=== PATIENT | female | born 1930 | race Caucasian/White ===

== ENCOUNTER 2017-03-07 18:34 | Inpatient (IN) | payer OTHER ==
[~2017-03-07] VITALS: Ht 157.5 cm; Wt 64.1 kg
[2017-03-07 20:05] LABS: CALCIUM 8.6 mg/dL (8.5-10.1); CHLORIDE SERUM 103 mmol/L (98-107); CREATININE SERUM 1.1 mg/dL (0.6-1.0); GLUCOSE SERUM 105 mg/dL (74-106); POTASSIUM SERUM 4.1 mmol/L (3.5-5.1); SODIUM SERUM 139 mmol/L (136-145)
[2017-03-07 20:18] LABS: ALBUMIN 3.6 g/dL (3.4-5.0); ALKALINE PHOSPHATASE 115 U/L (46-116); ALT/SGPT 22 U/L (14-59); AST/SGOT 32 U/L (15-37); CHOLESTEROL 188 mg/dL (<200); T4(THYROXINE) 10.2 ug/dL (4.7-13.3); TOTAL PROTEIN, SERUM 7.2 g/dL (6.4-8.2)
[2017-03-07 20:29] LABS: BASOPHIL % 0.1 % (0-2); PLATELET COUNT 269 x10^3mcL (130-400)
[2017-03-07 20:30] LABS: RED CELL DISTRIBUTION WIDTH 15.4 % (11.5-14.5)
[2017-03-07 22:31] LABS: microscopic required? YES; urine erythrocyte 2+ (NEGATIVE)
[2017-03-07 23:09] LABS: CHOLESTEROL/HDL RATIO 3.7; MAGNESIUM 1.7 mg/dL (1.8-2.4); PHOSPHOROUS 2.7 mg/dL (2.5-4.9)
[2017-03-07 23:14] VITALS: BP 117/60
[2017-03-08 05:34] VITALS: BP 124/52
[2017-03-08 07:30] VITALS: BP 132/62
[2017-03-08 09:51] VITALS: BP 113/38
[2017-03-08] MEDS ORDERED: LIPI10 PO (10:35)
[2017-03-08] MEDS ORDERED: LEVOTHYROXINE0.05 M2 PO (10:36)
[2017-03-08 11:14] VITALS: Ht 157.5 cm; Wt 64.1 kg
[2017-03-08 13:20] VITALS: BP 110/47
[2017-03-08 17:20] VITALS: BP 147/56
[2017-03-08 21:36] VITALS: BP 127/51
[2017-03-09 05:13] VITALS: BP 143/49
[2017-03-09 07:16] VITALS: BP 129/54
[2017-03-09 07:24] LABS: PLATELET COUNT 202 x10^3mcL (130-400)
[2017-03-09 07:28] LABS: RED CELL DISTRIBUTION WIDTH 15.5 % (11.5-14.5)
[2017-03-09 07:37] LABS: CARBON DIOXIDE 21.9 mmol/L (21-32); CHLORIDE SERUM 107 mmol/L (98-107); GLUCOSE SERUM 95 mg/dL (74-106); MAGNESIUM 1.9 mg/dL (1.8-2.4); POTASSIUM SERUM 3.4 mmol/L (3.5-5.1); SODIUM SERUM 135 mmol/L (136-145)
[2017-03-09 09:20] VITALS: BP 124/44
[2017-03-09 09:24] LABS: BAND NEUTROPHIL 4 % (0-10); BASOPHIL 0 % (0-2); MONOCYTE 10 % (0-7); SEGMENTED NEUTROPHILS 71 % (37-75)
[2017-03-09 09:25] LABS: PLATELET MORPHOLOGY PLATELETS NORMAL
[2017-03-09 13:50] VITALS: BP 112/62
[2017-03-09 17:20] VITALS: BP 172/58
[2017-03-09 21:14] VITALS: BP 139/43
[2017-03-10 05:26] VITALS: BP 112/92
[2017-03-10 07:47] LABS: CALCIUM 8.3 mg/dL (8.5-10.1); CHLORIDE SERUM 106 mmol/L (98-107); CREATININE SERUM 0.9 mg/dL (0.6-1.0); GLUCOSE SERUM 112 mg/dL (74-106); POTASSIUM SERUM 3.8 mmol/L (3.5-5.1); SODIUM SERUM 138 mmol/L (136-145)
[2017-03-10 08:00] VITALS: BP 132/63
[2017-03-10 12:28] LABS: PLATELET COUNT 195 x10^3mcL (130-400); RED CELL DISTRIBUTION WIDTH 15.7 % (11.5-14.5)
[2017-03-10 12:47] LABS: ATYPICAL LYMPH 1 %; BAND NEUTROPHIL 6 % (0-10); BASOPHIL 0 % (0-2); MONOCYTE 9 % (0-7); PLATELET MORPHOLOGY PLATELETS NORMAL; SEGMENTED NEUTROPHILS 69 % (37-75); rbc morphology (normal/abnorm) ABNORMAL (NORMAL)
[2017-03-10 14:32] VITALS: BP 123/53
[2017-03-10 21:39] VITALS: BP 132/57
[2017-03-11 06:18] LABS: BASOPHIL % 0.5 % (0-2); PLATELET COUNT 233 x10^3mcL (130-400)
[2017-03-11 06:21] LABS: CALCIUM 8.5 mg/dL (8.5-10.1); CHLORIDE SERUM 109 mmol/L (98-107); GLUCOSE SERUM 91 mg/dL (74-106); SODIUM SERUM 144 mmol/L (136-145)
[2017-03-11 06:24] VITALS: BP 161/60
[2017-03-11 06:31] LABS: RED CELL DISTRIBUTION WIDTH 15.5 % (11.5-14.5)
[2017-03-11 06:45] VITALS: BP 151/48
[2017-03-11 09:55] VITALS: BP 148/48
[2017-03-11 17:28] VITALS: BP 148/48
[2017-03-11 17:33] VITALS: BP 140/64
[2017-03-11] MEDS ORDERED: INVANZ1 GM IV (17:41)
== END 2017-03-11 19:50 | DRG 689 ==
LOC: ED 18:34 → MU 22:02 → DU 22:02 → MU 03-09 16:32
PROVIDERS: Emergency Medicine; Student in an Organized Health Care Education/Training Program; ADMIT Family Medicine
DX: N39.0 Urinary tract infection, site not specified (principal); G93.41 Metabolic encephalopathy; D68.69 Other thrombophilia; R73.03 Prediabetes; E83.42 Hypomagnesemia; E78.5 Hyperlipidemia, unspecified; E03.9 Hypothyroidism, unspecified; Z53.29 Procedure and treatment not carried out because of patient's decision for other reasons; I11.9 Hypertensive heart disease without heart failure; D64.9 Anemia, unspecified; E83.51 Hypocalcemia; E87.6 Hypokalemia; R26.81 Unsteadiness on feet; Z16.12 Extended spectrum beta lactamase (ESBL) resistance; B96.20 Unspecified Escherichia coli [E. coli] as the cause of diseases classified elsewhere; Z68.25 Body mass index [BMI] 25.0-25.9, adult; Z90.49 Acquired absence of other specified parts of digestive tract
CPT/HCPCS: 82962; 83880; 97110-GP; 97116-GP; 97530-GP; C1751; J0696; J1642; J2060; J2185 ×2; J3490; J7030; Q0092

== ENCOUNTER 2019-04-16 13:30 | Inpatient (IN) | payer OTHER ==
[~2019-04-16] VITALS: Ht 157.5 cm; Wt 61.7 kg
[~2019-04-16 13:30] MED LIST: INVANZ1 GM IV; LEVOTHYROXINE0.05 M2 PO; LIPI10 PO
[2019-04-16 13:35] VITALS: Ht 157.5 cm; Wt 61.7 kg
--- NOTE | 2019-04-16 13:47 | NUR ---
PER MEDIC PT WAS AT HER HOME WHEN HER DAUGHTER CALLED 911 DUE TO HER MOTHER 'SHAKING' AND NOT ACTING NORMAL. MEDIC STS UPON ARRIVAL PT WAS SHAKING AND ACTING CONFUSED. PER DAUGHTER PT HAS BEEN HAVING NAUSEA AND VOMITING FOR 3 DAYS. PER DAUGHT PT HAS NOT VOMITED TODAY. PER PT SHE STS SHE IS HAVING DAVID LOWER QUAD PAIN. PT DENIES ANY DYSURIA. POS BOWEL SOUNDS IN ALL 4 QUAD. PT IS ABLE TO ANSWER SIMPLE QUESTION BUT IS UNABLE TO STAY STILL. PER MASOOD PT SEEMS CONFUSED. VSS. RESP E/U. WILL CONTINUE TO MONITOR.
--- NOTE | 2019-04-16 15:21 | NUR ---
DR. BARFIELD AT BEDSIDE MORE MSE.
--- NOTE | 2019-04-16 15:40 | NUR ---
XRAY/LAB AT BEDSIDE
--- NOTE | 2019-04-16 15:45 | NUR ---
PT TAKEN TO CT.
[2019-04-16 15:49] LABS: UA SPECIFIC GRAVITY 1.015 (1.005-1.035); microscopic required? YES; urine erythrocyte 1+ (NEGATIVE)
[2019-04-16 15:51] LABS: BASOPHIL % 0.3 % (0-2); PLATELET COUNT 213 x10^3mcL (130-400)
[2019-04-16 16:00] LABS: AMPHETAMINE QUAL UR NONE DETECTED (See below)
[2019-04-16 16:02] LABS: CALCIUM 8.4 mg/dL (8.5-10.1); CARBON DIOXIDE 24.8 mmol/L (21-32); CHLORIDE SERUM 102 mmol/L (98-107); CREATININE SERUM 1.1 mg/dL (0.6-1.0); GLUCOSE SERUM 105 mg/dL (74-106); POTASSIUM SERUM 3.6 mmol/L (3.5-5.1); SODIUM SERUM 138 mmol/L (136-145)
[2019-04-16 16:13] LABS: ALKALINE PHOSPHATASE 201 U/L (46-116); ALT/SGPT 87 U/L (14-59); AST/SGOT 91 U/L (15-37); BILIRUBIN TOTAL 0.8 mg/dL (0.20-1.00); LIPASE 98 IU/L (73-393); MAGNESIUM 1.6 mg/dL (1.8-2.4); T4(THYROXINE) 11.1 ug/dL (4.7-13.3); TOTAL PROTEIN, SERUM 7.1 g/dL (6.4-8.2)
--- NOTE | 2019-04-16 16:16 | NUR ---
RETURNED FROM CT.
--- NOTE | 2019-04-16 16:16 | NUR ---
MEDICATED PER EMAR
[2019-04-16 16:18] LABS: ALBUMIN 3.2 g/dL (3.4-5.0); CHOLESTEROL 122 mg/dL (<200); HDL CHOLESTEROL 34 mg/dL (40-60)
--- NOTE | 2019-04-16 17:09 | NUR ---
ATTEMPTED TO OBTAIN ABG BUT PT WAS LETHARGIC AND UNCOOPERATIVE AND KEPT RETRACTING ARM WHEN NEEDLE WAS INSERTED. ATTEMPTED TWICE WITH NO SUCCESS. AT RISK FOR NEEDLE STICK SO NO MORE ATTEMPTS WERE MADE. DR BARFIELD AWARE AND SAID IT IS OKAY, PT WILL BE ADMITTED FOR NOW. ORDER CANCELLED.
--- NOTE | 2019-04-16 18:36 | NUR ---
PT INCONTINENT OF URINE. INCONTINENT CARE GIVEN BY THIS RN AND ASSISTED BY ALEX BRENNAN. PRIMARY CARE RN, GABRIELA, MADE AWARE.
[2019-04-16 19:35] VITALS: BP 144/62
--- NOTE | 2019-04-16 19:52 | NUR ---
RECEIVED PT FROM ER, PT ADMIT FOR PNA, PT IS A/O X2, CONFUSED, FOLLOW SOME COMMAND, LUNG SOUND DIM DAVID BASE, NO S/S OF SOB, PO2 97% IN ROOM AIR, DENY ANY CHEST PAIN OR DISCOMFORT, BOWEL SOUND PRESENT ALL 4 QUADRANTS, NO DISTENTION, NO TENDER. PEDAL PULSE PRESENT BOTH FEET, NO EDEMA, BED ALARM IS IN PLACE, IV AT LEFT AC, NO LEAKIGN, NO INFILTRATION. ALL ADLS ASSIST, ALL NEED MET, CALL LIGHT IN REACH, WILL CONTINUE TO MONITOR.
--- NOTE | 2019-04-16 20:03 | NUR ---
PUT PT ON TELE 1, NSR, NO S/S OF CHEST PAIN AT THIS MOMENT, ENDORSE PT TO PRIMARY NURSE, WILL CONTINUE TO MONITOR.
[2019-04-16 20:48] VITALS: BP 123/54
--- NOTE | 2019-04-16 21:30 | NUR ---
PT PULLING OF TELE MONITOR, PATIENT REORIENTED AND TELE REPLACED
--- NOTE | 2019-04-16 22:30 | NUR ---
PT IV WENT BAD, RESTARTED NEW IV TO THE RFA 22 GAUGE
--- NOTE | 2019-04-16 23:00 | NUR ---
PT RETING IN BED AND CONFUSED AND ATTEMPTING TO GET OUT OF BED, REORIENTED PT AND PT STARTED TO CALM DOWN, SAFETY PRECAUTIONS IN PLACE, BEDRAILS UP X 3 BED IN THE LOWEST POSITION, BED ALARM ON, WILL COTNTINUE TO MONITOR
--- NOTE | 2019-04-17 01:36 | NUR ---
PT IS AGITATED AND RESTLESS, CONTACTED DR JOHAN DR ORDERED ATIVAN 1 MG Q6HR PRN FOR AGITATION.
[2019-04-17 02:00] VITALS: BP 135/54
--- NOTE | 2019-04-17 03:20 | NUR ---
PT RESTING COMFORTABLY IN BED WITH NO ACUTE DISTRESS AT THIS TIME, RESPIRATIONS EVEN AND UNLABORED, SAFETY PRECAUTIONS IN PLACE, WILL CONTINUE TO MONITOR
--- NOTE | 2019-04-17 05:14 | NUR ---
PT WAS RESTLESS AND AGITATED THROUGH BEGINING OF SHIFT AND GRABBING AT IV AND TELE MONITOR, DR PRADO WAS NOTIFIED AND HE ORDERED PRN ATIVAN THAT WAS ADMINISTERED, PT CALMED DOWN AFTER ADMINISTRATION, PT DENIES ANY PAIN OR SOB, ALL NEEDS ATTENDED TO, SAFETY PRECAUTIONS IN PLACE, WILL CONTINUE TO MONITOR AND ENDORSE CARE
[2019-04-17 05:55] VITALS: BP 129/49
[2019-04-17 06:49] LABS: CALCIUM 7.9 mg/dL (8.5-10.1); CARBON DIOXIDE 25.4 mmol/L (21-32); CHLORIDE SERUM 103 mmol/L (98-107); CREATININE SERUM 0.9 mg/dL (0.6-1.0); GLUCOSE SERUM 95 mg/dL (74-106); POTASSIUM SERUM 3.4 mmol/L (3.5-5.1); SODIUM SERUM 138 mmol/L (136-145)
[2019-04-17 07:05] LABS: BASOPHIL % 0.2 % (0-2); PLATELET COUNT 191 x10^3mcL (130-400)
--- NOTE | 2019-04-17 07:15 | NUR ---
RECEIVED PT. IN BED AWAKE, ALERT. PT. IS CONFUSED (ONLY ORIENTED TO PERSON). NO SOB, NO N/V NOTED. PT. DENIES ANY PAIN AT THIS TIME. 1/2NS RUNNING AT 75 CC/HR VIA IV SITE AT L AC. BED IN LOW POS., CALL LIGHT WITHIN REACH. SIDE RAILS UP X3.
[2019-04-17 07:19] LABS: RED CELL DISTRIBUTION WIDTH 14.8 % (11.5-14.5)
[2019-04-17 09:02] VITALS: BP 130/50
--- NOTE | 2019-04-17 09:24 | NUR ---
PT. BECOMES VERY RESTLESS AND AGITATED. PT. CONSTANTLY ATTEMPTING TO GET OUT OF BED AND REMOVE TELE. MONITOR, IV TUBING, AND GOWN. ATIVAN 1MG IV GIVEN.
[2019-04-17] MEDS ORDERED: LEVOFLOXACIN500 M1 PO (10:10)
[2019-04-17 13:25] VITALS: BP 114/51
--- NOTE | 2019-04-17 17:00 | NUR ---
DR. BASHIR CALLED BACK. ABD. ULTRSOUND RESULTS AND CK LEVEL REPORTED TO DR. BASHIR. DR. BASHIR ALSO WAS MADE AWARE THAT PT.'S DAUGHTER EXPRESSED CONCERN THAT SHE FEELS PT. IS NOT STABLE ENOUGH TO BE DISCHARGED TODAY. DAUGHTER STATED EARLIER TODAY THAT SHE CAN'T TAKE THE PT. HOME WHEN PT. IS STILL VERY CONFUSED AND VERY WEAK. ORDER TO HOLD DISCHARGE TODAY RECEIVED FROM DR. BASHIR.
--- NOTE | 2019-04-17 17:11 | NUR ---
PT. IS GETTING RESTLESS AND AGITATED IN BED. PT. IS ALSO CONSTANTLY ATTEMPTING TO PULL ON IV LINE, TELE. WIRES, AND GOWN. ATIVAN 1MG IV GIVEN.
[2019-04-17 17:29] VITALS: BP 147/74
--- NOTE | 2019-04-17 19:30 | NUR ---
RECEIVED PT IN BED ASLEEP BUT AROUSABLE. FAMILY MEMBERS AT BEDSIDE. PT WAS MEDICATED W/ ATIVAN BY AM NURSE FOR AGITATION. PT NOW APPEARS CALM. NO SOB NOTED. ON O2 AT 2L VIA N/C. SHE HAS NO C/O PAIN AT THIS TIME. W/ IVF 1/2 NS AT 75 CC/HR RTFA. CALL LIGHT W/IN REACH.
--- NOTE | 2019-04-17 23:42 | NUR ---
PT CONFUSED AND REMOVING TELE, TRYING TO PULL IV AND TRYING TO GET OOB REPEATEDLY. PT REORIENTED NEEDED BUT INEFFECTIVE. PTGIVEN ATIVAN 1 MG IV TO HELP HER CALM DOWN. SITTER AT BEDSIDE.
[2019-04-17 23:55] VITALS: BP 150/54
--- NOTE | 2019-04-18 00:26 | NUR ---
PT SLEEPING SOUNDLY AT THIS TIME. NO S/S OF DISTRESS. SITTER AT BEDSIDE.
--- NOTE | 2019-04-18 05:16 | NUR ---
PT REMAINS ASLEEP. SHE WAS MEDICATED FOR AGITATION X1. NO EPISODE OF RESP. DISTRESS. SHE HAD NO C/O PAIN. IVF 1/2 NS INFUSING WELL AT 75 CC/HR VIA RTFA. ALL NEEDS ATTENDED TO. SITTER AT BEDSIDE.
[2019-04-18 06:52] VITALS: BP 126/75
--- NOTE | 2019-04-18 07:15 | NUR ---
RECEIVED PT. IN BED AWAKE BUT CONFUSED. PT. IS ONLY ORIENTED TO PERSON. NOTICED PT. STILL ATTEMPTING TO PULL ON IV LINE AND TELE. MONITOR. NO SOB, NO N/V NOTED. PT. DENIES ANY PAIN AT THIS TIME. 1/2NS RUNNING AT 75 CC/HR VIA IV SITE AT R FA. BED IN LOW POS., CALL LIGHT WITHIN REACH. SIDE RAILS UP X3. CONTACT CENTRE SUPERVISOR AT BEDSIDE TO MAINTAIN SAFETY.
--- NOTE | 2019-04-18 07:25 | NUR ---
PT. IS BEING SEEN BY DR. BASHIR AT THIS TIME.
[2019-04-18 08:18] LABS: BASOPHIL % 0.2 % (0-2); PLATELET COUNT 215 x10^3mcL (130-400)
[2019-04-18 08:19] LABS: RED CELL DISTRIBUTION WIDTH 15.4 % (11.5-14.5)
[2019-04-18 08:31] LABS: ALKALINE PHOSPHATASE 168 U/L (46-116); ALT/SGPT 70 U/L (14-59); AST/SGOT 51 U/L (15-37); BILIRUBIN TOTAL 0.39 mg/dL (0.20-1.00); CALCIUM 8.2 mg/dL (8.5-10.1); CARBON DIOXIDE 24.1 mmol/L (21-32); CHLORIDE SERUM 104 mmol/L (98-107); CREATININE SERUM 0.8 mg/dL (0.6-1.0); GLUCOSE SERUM 128 mg/dL (74-106); POTASSIUM SERUM 3.2 mmol/L (3.5-5.1); SODIUM SERUM 137 mmol/L (136-145); TOTAL PROTEIN, SERUM 6.2 g/dL (6.4-8.2)
[2019-04-18 08:33] LABS: ALBUMIN 2.7 g/dL (3.4-5.0)
[2019-04-18 08:55] VITALS: BP 136/92
[2019-04-18 13:17] VITALS: BP 146/65
--- NOTE | 2019-04-18 15:35 | NUR ---
CALLED AND REPORTED K LEVEL (3.2) TO DR. BASHIR. ORDER TO ADMINISTER PO KCL 40 MEQ X1 RECEIVED.
[2019-04-18 17:08] VITALS: BP 155/72
--- NOTE | 2019-04-18 18:11 | NUR ---
REMAINS IN STABLE CONDITION AT THIS TIME. WILL CONTINUE TO MONITOR.
--- NOTE | 2019-04-18 19:20 | NUR ---
RECEIVED PT IN BED AWAKE, ALERT BUT CONFUSED. PER REPORT PT REMAINS CONFUSED BUT CALMER. NO SOB NOTED ON ROOM AIR. SHE HAS NO C/O PAIN AT THIS TIME. BOWEL SOUNDS ACTIVE. W/ IVF 1/2 NS AT 75 CC/HR VIA RTFA. CALL LIGHT W/IN REACH. BED ALARM ACTIVATED. SITTER AT BEDSIDE.
[2019-04-18 20:32] VITALS: BP 153/63
--- NOTE | 2019-04-18 22:41 | NUR ---
PT AWAKE, RESTING IN BED. SHE APPEARS CALM AT THIS TIME. NO C/O PAIN OR DISCOMFORT.
--- NOTE | 2019-04-18 23:30 | NUR ---
PT AWAKE, STILL CONFUSED BUT CALM. NO C/O DISCOMFORT OR PAIN.
--- NOTE | 2019-04-19 02:00 | NUR ---
PT REAMINS CALM AND APPEARS TO BE SLEEPING SOUNDLY.
[2019-04-19 04:59] VITALS: BP 155/55
--- NOTE | 2019-04-19 05:17 | NUR ---
PT SLEPT AT LONG INTERVALS. SHE IS LESS CONFUSED AND REMAINED CALM DURING THE NIGHT. NO EPISODE OF SOB ON ROOM AIR. SHE HAD NO C/O PAIN. PT IS INCONTINENT OF URINE. NO BM NOTED THIS SHIFT. ALL NEEDS ATTENDED TO.
[2019-04-19 06:35] LABS: BASOPHIL % 0.7 % (0-2); PLATELET COUNT 240 x10^3mcL (130-400)
[2019-04-19 06:46] LABS: ALKALINE PHOSPHATASE 145 U/L (46-116); ALT/SGPT 57 U/L (14-59); AST/SGOT 35 U/L (15-37); BILIRUBIN TOTAL 0.3 mg/dL (0.20-1.00); CALCIUM 8.1 mg/dL (8.5-10.1); CARBON DIOXIDE 24.6 mmol/L (21-32); CHLORIDE SERUM 108 mmol/L (98-107); CREATININE SERUM 0.8 mg/dL (0.6-1.0); GLUCOSE SERUM 86 mg/dL (74-106); POTASSIUM SERUM 3.7 mmol/L (3.5-5.1); SODIUM SERUM 141 mmol/L (136-145)
[2019-04-19 06:49] LABS: RED CELL DISTRIBUTION WIDTH 14.9 % (11.5-14.5)
[2019-04-19 06:52] LABS: ALBUMIN 2.5 g/dL (3.4-5.0); TOTAL PROTEIN, SERUM 5.8 g/dL (6.4-8.2)
--- NOTE | 2019-04-19 07:30 | NUR ---
RECEIVED PT FROM DEWATERER OPERATOR RN. CONFUSED, ORIENTED TO SELF. TELE#1. DENIES CHEST PAIN/PRESSURE. RESPIRATIONS EQUAL AND UNLABORED ON RA. DENIES SOB. PT DENIES ANY PAIN AT THIS TIME. NOTED SCATTERED ECCHYMOSIS TO BLE AND RFA, IRIS. IV TO RFA PATENT AND INFUSING. NO REDNESS OR SWELLING NOTED. WILL CONTINUE TO MONITOR. CALL LIGHT IN REACH. BED IN LOWEST POSITION.
[2019-04-19 08:30] VITALS: BP 136/74
--- NOTE | 2019-04-19 10:12 | NUR ---
SPOKE WITH DENIS PHYSICAL THERAPIST RECOMMENDS PT CONTINUE HOME HEALTH WITH PT. CALLED [facility]RYST[facility] CORREIA, PER DR. BASHIR ARRANGE FOR HOME HEALTH WITH PHYSICAL THERAPY.
[2019-04-19 10:17] VITALS: BP 136/74
[2019-04-19 12:45] VITALS: BP 162/69
[2019-04-19 14:59] VITALS: BP 128/71
--- NOTE | 2019-04-19 15:40 | NUR ---
PT SITTING UP IN BED. NO ACUTE RESP
--- NOTE | 2019-04-19 15:54 | NUR ---
PT SITTING UP IN BED. PT GIVEN DISCHARGE INSTRUCTIONS WITH DAUGHTER JAGDISH AT BEDSIDE. PT ENCOURAGED TO CONTINUE ACTIVITY TOLERATED. PT GIVEN PRESCRIPTION FOR LEVAQUIN AND INSTRUCTED TO TAKE MEDICATION DAILY FOR 6 DAYS. PT AND DAUGHTER VERBALIZED UNDERSTANDING. PT ENCOURAGED TO RETURN TO ER OR PCP IF ANY WORSENING SYMPTOMS OF FEVER, DIFFICULTY BREATHING, CHILLS, ETC. PT VERBALIZED UNDERSTANDING. PT ENCOURAGED TO FOLLOW UP WITH PCP WITHIN 1 WEEK OF DISCHARGE. PT VERBALIZED UNDERSTANDING. ALL QUESTIONS AND CONCERNS ADDRESSED. DAUGHTER SIGNED FOR PATIENT. NO PROBLEMS ENCOUNTERED. DAUGHTER STATES "HER LEAF TINNER WILL BE HERE BETWEEN 4:30-5:00PM. IT'S BETTER IF WE WAIT FOR HER BECAUSE SHE CAN HELP ME WITH MY MOTHER" WILL CONTINUE TO MONITOR. CALL LIGHT IN REACH. BED IN LOWEST POSITION.
--- NOTE | 2019-04-19 16:56 | NUR ---
PT DAUGHTER JAGDISH REQUESTING FOR A FRONT WHEEL WALKER FOR PT. SPOKE WITH [employer] BROOKE, PER BROOKE WILL WORK ON GETTING PT A FRONT WHEEL WALKER. SPOKE WITH DR. KRYSTEN PERRY TO ORDER FRONT WHEEL WALKER. ORDER CONFIRMED TORRaisa.
== END 2019-04-19 17:50 | disposition home health service (06) | DRG 194 ==
LOC: ED 13:30 → DU 18:06
PROVIDERS: Emergency Medicine; ADMIT Internal Medicine
DX: J18.9 Pneumonia, unspecified organism (principal); M62.82 Rhabdomyolysis; R50.9 Fever, unspecified; R41.0 Disorientation, unspecified; F41.9 Anxiety disorder, unspecified; R74.0 Nonspecific elevation of levels of transaminase and lactic acid dehydrogenase [LDH]; I45.10 Unspecified right bundle-branch block; E03.9 Hypothyroidism, unspecified; E78.5 Hyperlipidemia, unspecified; Z68.25 Body mass index [BMI] 25.0-25.9, adult; Z87.440 Personal history of urinary (tract) infections
CPT/HCPCS: 82962; 97116-GP; 97530-GP; G0378; G0480; J0456; J0696; J1630; J1650; J1956; J2060; J3475; J7030; J7060; Q0092

== ENCOUNTER 2019-04-22 18:16 | Emergency (ER) | payer OTHER ==
[~2019-04-22] VITALS: Ht 157.5 cm; Wt 74.8 kg
[~2019-04-22 18:16] MED LIST changes: +LEVOFLOXACIN500 M1 PO
[2019-04-22 18:26] VITALS: Ht 157.5 cm; Wt 74.8 kg
[2019-04-22 20:10] LABS: BASOPHIL % 0.6 % (0-2); PLATELET COUNT 346 x10^3mcL (130-400); RED CELL DISTRIBUTION WIDTH 15.2 % (11.5-14.5)
[2019-04-22 20:33] LABS: CALCIUM 8.6 mg/dL (8.5-10.1); CARBON DIOXIDE 21.2 mmol/L (21-32); CHLORIDE SERUM 104 mmol/L (98-107); CREATININE SERUM 1.5 mg/dL (0.6-1.0); GLUCOSE SERUM 103 mg/dL (74-106); POTASSIUM SERUM 3.9 mmol/L (3.5-5.1); SODIUM SERUM 138 mmol/L (136-145)
[2019-04-22 20:38] LABS: ALT/SGPT 83 U/L (14-59); AST/SGOT 57 U/L (15-37); BILIRUBIN TOTAL 0.5 mg/dL (0.20-1.00)
[2019-04-22 20:39] LABS: ALBUMIN 3.3 g/dL (3.4-5.0)
[2019-04-22 20:54] LABS: ALKALINE PHOSPHATASE 155 U/L (46-116)
[2019-04-22 21:07] VITALS: BP 134/64
== END 2019-04-22 21:07 | disposition home or self-care (01) ==
LOC: ED 18:16
PROVIDERS: Emergency Medicine
DX: F03.91 Unspecified dementia, unspecified severity, with behavioral disturbance (principal); E78.00 Pure hypercholesterolemia, unspecified
CPT/HCPCS: 36415; Q0092

== ENCOUNTER 2019-06-27 16:34 | Emergency (ER) | payer OTHER ==
[~2019-06-27] VITALS: Ht 154.9 cm; Wt 54.4 kg
[2019-06-27 16:40] VITALS: Ht 154.9 cm; Wt 54.4 kg
[2019-06-27 18:03] LABS: BASOPHIL % 0.6 % (0-2); PLATELET COUNT 269 x10^3mcL (130-400)
[2019-06-27 18:05] LABS: RED CELL DISTRIBUTION WIDTH 14.8 % (11.5-14.5)
[2019-06-27 18:12] LABS: CALCIUM 8.2 mg/dL (8.5-10.1); CARBON DIOXIDE 26.9 mmol/L (21-32); CHLORIDE SERUM 108 mmol/L (98-107); CREATININE SERUM 1.1 mg/dL (0.6-1.0); GLUCOSE SERUM 101 mg/dL (74-106); POTASSIUM SERUM 4.2 mmol/L (3.5-5.1); SODIUM SERUM 143 mmol/L (136-145)
[2019-06-27 18:16] LABS: ALBUMIN 3.1 g/dL (3.4-5.0); ALKALINE PHOSPHATASE 104 U/L (46-116); ALT/SGPT 20 U/L (14-59); AST/SGOT 17 U/L (15-37); BILIRUBIN TOTAL 0.3 mg/dL (0.20-1.00); TOTAL PROTEIN, SERUM 6.9 g/dL (6.4-8.2)
[2019-06-27 18:53] VITALS: BP 166/64
== END 2019-06-27 18:53 | disposition home or self-care (01) ==
LOC: ED 16:34
PROVIDERS: Emergency Medicine
DX: R53.1 Weakness (principal); F03.90 Unspecified dementia, unspecified severity, without behavioral disturbance, psychotic disturbance, mood disturbance, and anxiety; E78.00 Pure hypercholesterolemia, unspecified; W18.30XA Fall on same level, unspecified, initial encounter; Y93.89 Activity, other specified; Y92.89 Other specified places as the place of occurrence of the external cause; Y99.8 Other external cause status
CPT/HCPCS: 36415; 82962; Q0092